=== PATIENT | male | born 1985 | race Hispanic/Latino ===

== ENCOUNTER 2024-01-30 11:19 | Emergency (ER) | payer OTHER ==
[~2024-01-30] VITALS: Ht 180.3 cm; Wt 86.6 kg
[2024-01-30] MEDS ORDERED: MOXIOS OD (11:46)
[2024-01-30 12:33] VITALS: BP 116/64; PULSE 72; RESP 16; O2SAT 99
== END 2024-01-30 12:40 | disposition home or self-care (01) ==
LOC: EDH 11:19
DX: H10.89 Other conjunctivitis (principal); H57.13 Ocular pain, bilateral

== ENCOUNTER 2024-06-23 00:29 | Emergency (ER) | payer OTHER ==
[~2024-06-23] VITALS: Ht 180.3 cm; Wt 85.0 kg
[~2024-06-23 00:29] MED LIST: MOXIOS OD
[2024-06-23] MEDS ORDERED: TOBR5DRO46 OP (00:56)
[2024-06-23 00:57] VITALS: BP 127/68; PULSE 74; RESP 14; TEMP 98.1; O2SAT 96
--- NOTE | 2024-06-23 00:57 | ERN ---
General Chief Complaint: Eye Problems Stated Complaint: REDNESS BILATERAL EYES Time Seen by MD: 00:48 Time Seen by Midlevel: 00:48 Source: patient History of Present Illness Initial Comments Patient is a 38-year-old male with no significant past medical history presenting to the emergency department with redness to bilateral eyes. Patient states the symptoms have been ongoing for the last three days. He states that after waking up he does noticed some green discharge from his eyes. Denies any vision changes, headaches, flu-like symptoms or any other symptoms at this time. He states he had a similar episode earlier this year and was diagnosed with conjunctivitis and sent home with moxifloxacin which resolved his symptoms. Allergies: Coded Allergies: No Known Drug Allergies (Unverified Allergy, Unknown, 01/30/24) Home Meds Active Scripts Tobramycin/Dexamethasone (Tobradex St Eye Drops) 0.3 %-0.05 % Drops.susp, 1 DROP OP QID for 5 Days, #5 ML 0 Refills Prov:ANGELICA CHANDLER 06/23/24 Moxifloxacin HCl (Vigamox 0.5% Ophth Soln) 0.5 % Opsol, 1 DROP OD TID for 7 Days, #5 ML ONE DROP BILATERAL EYES3 TIMES A DAY FOR SEVEN DAYS. Prov:ZEUS AGUILAR NP 01/30/24 Past Medical History Past Medical History: No Pertinent History Past Surgical History: None ROS Dictation CONSTITUTIONAL: Negative except for HPI HEAD/FACE: Negative except for HPI EENT: Negative except for HPI RESPIRATORY: Negative except for HPI GASTROINTESTINAL/ABDOMINAL: Negative except for HPI GENITOURINARY: Negative except for HPI MUSCULOSKELETAL: Negative except for HPI INTEGUMENTARY: Negative except for HPI NEUROLOGICAL/PSYCH: Negative except for HPI HEMATOLOGIC/LYMPHATIC: Negative except for HPI All Systems Negative, Except as noted above. 13 point review of systems assessed and all negative except for above. Physical Exam Physical Exam Dictation Vital Signs reviewed General Appearance: Alert, oriented x 3, no acute distress, well developed, nourished. Head and Face: non-traumatic. Eyes: PERRL, bilateral conjunctivitis, eyelid no trauma, anterior chamber with arcus senilis. Ears: Pinnas intact and no signs of trauma or erythema ear canals clear and no discharge TM no erythema Nose: No discharge, no bleeding. Oropharynx: Mouth normal, tongue pink, pharynx clear,no erythema, tonsils no exudates, no abscesses noted, mucous membrane moist Neck: Supple, non-tender, no thyromegaly, no masses, no JVD, no bruits Breast:Deferred Chest:No tenderness, no crepitus, no paradoxical movement, no retractions Lungs:Clear, well-ventilated, symmetric, no rales, no wheezing, no rhonchi, no stridor, good breath sounds bilaterally Heart: Regular rate, regular rhythm, no murmur, no gallops Vascular: no peripheral edema, Abdomen: Soft, positive bowel sounds, nondistended, no guarding, nontender, no rebound, no masses no hepatomegaly, no splenomegaly, no Kaufman's sign, no hernias. Rectal: Deferred Genital: Deferred Neurological: Normal speech, motor function intact, sensory function intact Musculoskeletal: Neck nontender, full range of motion, back nontender, full range of motion, Extremities: nontender, full range of motion Skin: Color pink, dry, no turgor, no rash, no lacerations, no abrasions, no cont usions. Lymphatic: Deferred MDM MDM: Patient is a 38-year-old male with no significant past medical history presenting to the emergency department with redness to bilateral eyes. Patient states the symptoms have been ongoing for the last three days. He states that after waking up he does noticed some green discharge from his eyes. Denies any vision changes, headaches, flu-like symptoms or any other symptoms at this time. He states he had a similar episode earlier this year and was diagnosed with conjunctivitis and sent home with moxifloxacin which resolved his symptoms. On physical examination patient has redness to bilateral eyes which is consistent with conjunctivitis. The remainder of his physical examination is unremarkable. Patient was started on TobraDex in the emergency department and was sent home with a prescription for TobraDex for outpatient management. He was advised to follow up with PCP in 2-3 days for repeat evaluation. Return precautions discussed Differential diagnosis: Bacterial conjunctivitis, allergic conjunctivitis, seasonal allergies There are no social concerns with this patient. Prescription drug management Prescriptions will include: TobraDex Medical management and examination interpretation discussions were had by me with other qualified healthcare professionals as indicated for the patient's care. ED Course Orders Procedure Category Date Status Time Tobramycin PHA 06/23/24 Complete Sulf/Dexamethasone 01:00 Current Medications Medications (Trade) Dose Ordered Sig/Saad Route PRN Reason Start Time Stop Time Status Last Admin Dose Admin Tobramycin/ Dexamethasone (TobraDEX EYE DROPS) 1 DROP ONCE OD 06/23/24 01:00 06/23/24 01:02 DC 06/23/24 01:00 Vital Signs Date Time Temp Pulse Resp B/P (MAP) Pulse Ox O2 Delivery O2 Flow Rate FiO2 06/23/24 00:57 98.1 74 14 127/68 96 Room Air* 0 21 06/23/24 00:32 98.8 75 12 124/62 98 Room Air* 0 21 06/23/24 00:30 97.2 74 16 167/105 99 Room Air DX & DISP Disposition: Discharge Departure Impression: Primary Impression: Bilateral conjunctivitis Condition: Stable Scripts Tobramycin/Dexamethasone (Tobradex St Eye Drops) 0.3 %-0.05 % Drops.susp 1 DROP OP QID for 5 Days, #5 ML 0 Refills Prov: ANGELICA CHANDLER 06/23/24 Additional Instructions: Your physical examination is consistent with bilateral conjunctivitis. You were given TobraDex in the emergency department. I have given you a prescription for TobraDex for outpatient management. Follow up with your primary care doctor in 2-3 days for repeat evaluation. Return to the ER for any new or worsening symptoms. Referrals: SELF,REFERRAL (PCP) Time of Disposition: 00:56 I have reviewed the case, and I agree with, Diagnosis and Plan I performed the substantive portion of the visit. I have reviewed and personall y made and approve the management plan that is documented in the note by myself or the APOLINAR. I acknowledge for responsibility for the patient's management plan. ANGELICA CHANDLER Jun 23, 2024 00:57
[2024-06-23] MEDS: TobRAMYCin/DEXAmethASONE OPTH SUSP 2.5 ML BOT OD SCH (01:00)
== END 2024-06-23 01:02 | disposition home or self-care (01) ==
LOC: EDH 00:29
DX: H10.9 Unspecified conjunctivitis (principal); Z79.899 Other long term (current) drug therapy
CPT/HCPCS: 99283